=== PATIENT | male | born 1990 | race Two or more races ===

== ENCOUNTER 2021-11-25 12:55 | Emergency (ER) | payer MEDICAID ==
[~2021-11-25] VITALS: Ht 175.3 cm; Wt 95.3 kg
[2021-11-25 13:06] VITALS: BP 126/76
[2021-11-25] MEDS: LIDOCAINE 1%-EPI 1:100,000 20 ML VIAL TP ONE (15:00)
[2021-11-25] MEDS ORDERED: IBUP-1957 PO (15:25)
[2021-11-25] MEDS ORDERED: AMOX-430 PO (15:25)
--- NOTE | 2021-11-25 15:37 | NUR ---
Patient discharged to home in stable condition. Written and verbal after care instructions given. Patient verbalizes understanding of instruction.
== END 2021-11-25 15:37 | disposition home or self-care (01) ==
LOC: ER 13:05
DX: L05.01 Pilonidal cyst with abscess (principal)
CPT/HCPCS: 10080; 72220; 99283; A6403; A6407